=== PATIENT | male | born 2000 | race Two or more races ===

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

== ENCOUNTER 2022-01-24 19:39 | Emergency (ER) | payer OTHER ==
[2022-01-24 20:25] LABS: #Eosinphils 0.1 10x3/uL (0.0-0.5); #Monocytes 0.5 10x3/uL (0.0-1.1); #Neutrophils 4.7 10x3/uL (1.5-8.4); %Basophils 0.3 % (0.0-2.0); %Eosinophils 0.8 % (0.0-6.0); %Lymphocytes 15.2 % (18.0-47.0); %Monocytes 7.8 % (0.0-10.0); %Neutrophils 75.6 % (40.0-75.0); Hemoglobin 13.3 g/dL (13.5-17.5); Mean Corpuscular HGB CONC 33.6 g/dL (32.0-36.0); Mean Corpuscular Volume 86.5 fl (81.2-95.1); Mean Platelet Volume 11.5 fl (7.4-10.4); Platelet Count 148 10x3/uL (150-450); RBC Distribution Width 12.9 % (11.5-14.5); Red Blood Cell (RBC) Count 4.58 10x6/uL (4.32-5.72); White Blood Cell (WBC) Count 6.3 10x3/uL (3.5-10.5)
[2022-01-24 20:33] LABS: ALT (SGPT) 26 U/L (8-55); AST (SGOT) 31 U/L (10-45); Albumin 3.9 g/dL (3.5-5.0); Alkaline Phosphatase 66 U/L (50-130); Anion Gap 12 mmol/L (10-20); BUN (Urea Nitrogen) 12 mg/dL (8.4-21.0); Bilirubin, Total 0.4 mg/dL (0.2-1.2); CK (CPK) 458 U/L (30-200); Calc. Creatinine Clearance 0 mL/min (70-130); Calcium 9.1 mg/dL (7.8-10.44); Carbon Dioxide 27 mmol/L (22-29); Chloride 101 mmol/L (98-107); Estimated GFR 98; Globulin 2.4 g/dL (2.4-3.5); Glucose 99 mg/dL (70-105); Lipase 34 U/L (8-78); Potassium 3.8 mmol/L (3.5-5.1); Protein, Total 6.3 g/dL (6.0-8.3); Sodium 136 mmol/L (136-145)
[2022-01-24 21:06] LABS: SARS-CoV-2 NAA Rapid Test DETECTED (NotDetected)
[2022-01-24] MEDS ORDERED: Ondansetron PF 4 MG/2 ML Vial ONE (21:14)
== END 2022-01-24 22:00 | disposition home or self-care (01) ==
LOC: CSHERS 19:39
DX: U07.1 COVID-19 (principal); T67.5XXA Heat exhaustion, unspecified, initial encounter; X30.XXXA Exposure to excessive natural heat, initial encounter
CPT/HCPCS: 36416; 71045; 80053; 82550; 83690; 85025; 93005; 96374; J2405; U0002